=== PATIENT | male | born 1940 ===

== ENCOUNTER 2019-07-22 08:00 | Inpatient (IN) | payer OTHER ==
[~2019-07-22] VITALS: Ht 177.8 cm; Wt 115.7 kg
[2019-07-22] MEDS ORDERED: PRADAXA 75 MG (10:54)
[2019-07-22] MEDS ORDERED: SINGULAIR10 MG (10:55)
[2019-07-22] MEDS ORDERED: CLONAZEPAM0.5 M1 (10:55)
[2019-07-22] MEDS ORDERED: ATORVASTATIN CA20 MG (10:55)
[2019-07-22] MEDS ORDERED: DILTIAZEM 24HR240 MG (10:55)
[2019-07-22] MEDS ORDERED: LASIX20 MG (10:55)
[2019-07-22] MEDS ORDERED: PAXIL20 MG (10:55)
[2019-08-02] MEDS ORDERED: PRADAXA75 MG PO (08:16)
== END 2019-08-04 17:39 | DRG 467 ==
LOC: O/R 08:00 → SURG 08-02 06:30 → O/R 08-02 06:30 → SURH 08-02 07:00 → SURG 08-02 17:05
PROVIDERS: ADMIT Orthopaedic Surgery
PROC: 0SWD0JZ Revision of Synthetic Substitute in Left Knee Joint, Open Approach (ICD-10-PCS; principal; 2019-08-02 07:00)
DX: T84.033A Mechanical loosening of internal left knee prosthetic joint, initial encounter (principal); D62 Acute posthemorrhagic anemia; T84.84XA Pain due to internal orthopedic prosthetic devices, implants and grafts, initial encounter; I11.9 Hypertensive heart disease without heart failure; I48.0 Paroxysmal atrial fibrillation; Z79.01 Long term (current) use of anticoagulants